=== PATIENT | female | born 1950 | race Caucasian/White ===

== ENCOUNTER 2017-02-23 08:34 | Day surgery (SDC) | payer MEDICARE, OTHER ==
--- NOTE | ~2017-02-23 | EGD ---
EGD REPORT [facility] [address] [place] [address] NAME: LACEY ROLDAN : [birth year] STATUS : REG [facility]#: [id number] AGE: 66 ADM/REG DATE : 02/23/17 MR#: [id number] REPORT SERV DATE: 02/23/17 DICTATED BY: NEY MOLINA DATE: 02/23/17 REPORT STATUS : Draft [facility]: [facility] DATE: 02/23/17 Endoscopy Center Patient Name: Lacey Roldan Date of : 1950 Attending MD: NEY MOLINA MD Procedure Date No Time: 02/23/2017 Procedure: Colonoscopy Indications: Screening in patient at increased risk: Family history of 1st-degree relative with colorectal cancer Referring MD: CRISTAL MAI MD Medicines: as per anesthesia Complications: No immediate complications. Procedure: Pre-Anesthesia Assessment: - ASA Grade Assessment: II - A patient with mild systemic disease. After I obtained informed consent, the scope was passed under direct vision. Throughout the procedure, the patient's blood pressure, pulse, and oxygen saturations were monitored continuously. The PCF [id number] was introduced through the anus and advanced to the cecum, identified by appendiceal orifice and ileocecal valve. The colonoscopy was somewhat difficult due to significant looping and a tortuous colon. The patient tolerated the procedure. The quality of the bowel preparation was adequate to identify polyps. Findings: The perianal and digital rectal examinations were normal. A sessile polyp was found in the descending colon. The polyp was 3 mm in size. The polyp was removed with a cold biopsy forceps. Resection and retrieval were complete. Internal hemorrhoids were found during endoscopy and were mild. Impression: - One 3 mm polyp in the descending colon. Resected and retrieved. - Internal hemorrhoids. Recommendation: - Await pathology results. - Repeat colonoscopy for surveillance based on pathology results. Procedure Code(s): --- Professional --- 52507, Colonoscopy, flexible, proximal to splenic flexure; with biopsy, single or multiple EGD REPORT [facility] [address] [facility] [place]. [address] NAME: LACEY ROLDAN : [birth year] STATUS : REG [facility] PAT#: [id number] AGE: 66 ADM/REG DATE : 02/23/17 MR#: [id number] REPORT SERV DATE: 02/23/17 DICTATED BY: NEY MOLINA DATE: 02/23/17 REPORT STATUS : Draft TRANSCRIBED BY: [employer] DATE: 02/23/17 Diagnosis Code(s): --- Professional --- D12.4, Benign neoplasm of descending colon K64.8, Other hemorrhoids Z12.11, Encounter for screening for malignant neoplasm of colon Z80.0, Family history of malignant neoplasm of digestive organs CPT copyright 2013 [employer]. All rights reserved. The codes documented in this report are preliminary and upon system validation engineer review may be revised to meet current compliance requirements. NEY MOLINA MD 02/23/2017 11:43 AM This report has been signed electronically. Number of Addenda: 0 Note Initiated On: 02/23/2017 11:07 AM Scope Withdrawal Time 0 hours 8 minutes 42 seconds [address] [place] [address]
[~2017-02-23 08:34] MED LIST: BIOTIN10 MG PO; CALTRA600D PO; FISH-EPA1000 MG PO; PRESERVISION A1 EAC1 PO; VITAMIN D31000 UNIT PO; ZOCOR10 PO
== END 2017-02-23 23:59 | disposition home health service (06) ==
LOC: DMU 08:34
PROVIDERS: Internal Medicine Gastroenterology
PROC: 0DBM8ZX Excision of Descending Colon, Via Natural or Artificial Opening Endoscopic, Diagnostic (ICD-10-PCS; principal; 2017-02-23 10:00)
DX: Z12.11 Encounter for screening for malignant neoplasm of colon (principal); D12.4 Benign neoplasm of descending colon; E78.00 Pure hypercholesterolemia, unspecified; M19.90 Unspecified osteoarthritis, unspecified site; K64.8 Other hemorrhoids; I10 Essential (primary) hypertension; Z80.0 Family history of malignant neoplasm of digestive organs; Z98.890 Other specified postprocedural states
CPT/HCPCS: 88305